=== PATIENT | female | born 1995 | race Caucasian/White ===

== ENCOUNTER 2021-12-16 12:48 | Day surgery (SDC) | payer OTHER ==
[2021-12-14 14:43] VITALS: BMI 25.7
[2021-12-16 13:13] VITALS: TEMP 97.5
[2021-12-16 15:03] VITALS: BP 105/60; PULSE 78
== END 2021-12-16 15:04 | disposition home or self-care (01) ==
LOC: FASU-ENDO 12:48
PROVIDERS: ATTEND Internal Medicine Gastroenterology
PROC: 0DB68ZX Excision of Stomach, Via Natural or Artificial Opening Endoscopic, Diagnostic (ICD-10-PCS; 2021-12-16)
PROC: 0DB48ZX Excision of Esophagogastric Junction, Via Natural or Artificial Opening Endoscopic, Diagnostic (ICD-10-PCS; 2021-12-16)
PROC: 0DB98ZX Excision of Duodenum, Via Natural or Artificial Opening Endoscopic, Diagnostic (ICD-10-PCS; principal; 2021-12-16 14:09)
DX: K29.50 Unspecified chronic gastritis without bleeding (principal); K22.70 Barrett's esophagus without dysplasia; R10.13 Epigastric pain
CPT/HCPCS: 84703; 88305-TC; 88342-TC